=== PATIENT | male | born 1960 | race Caucasian/White ===

== ENCOUNTER 2024-09-02 07:56 | Day surgery (SDC) | payer OTHER ==
[~2024-09-02] VITALS: Ht 167.6 cm; Wt 88.5 kg
[2024-09-02] MEDS ORDERED: MEPERIDINE 100 MG INJ. 100 MG/ML VIAL ONE (08:08)
[2024-09-02] MEDS ORDERED: MIDAZOLAM HCL 5 MG/5 ML VIAL ONE (08:09)
[2024-09-02 14:40] VITALS: O2SAT 98
[2024-09-02 15:38] VITALS: BP_SYST 151; PULSE 69; RESP 19
== END 2024-09-02 12:02 | disposition home or self-care (01) ==
LOC: SDS 07:56 → SMU 07:58 → SDS 12:02
PROVIDERS: ATTEND Internal Medicine Gastroenterology
DX: Z12.11 Encounter for screening for malignant neoplasm of colon (principal); D12.3 Benign neoplasm of transverse colon; D12.4 Benign neoplasm of descending colon; K29.50 Unspecified chronic gastritis without bleeding; K21.9 Gastro-esophageal reflux disease without esophagitis; K64.8 Other hemorrhoids; K44.9 Diaphragmatic hernia without obstruction or gangrene; K57.30 Diverticulosis of large intestine without perforation or abscess without bleeding; M19.90 Unspecified osteoarthritis, unspecified site; Z79.899 Other long term (current) drug therapy
CPT/HCPCS: 45385; 43239; 99152; 87081; 36415; 88305; 88313; 99153; G0378; J2250; J2175